=== PATIENT | male | born 1955 | race Caucasian/White ===

== ENCOUNTER 2017-04-16 07:36 | Emergency (ER) | payer BC ==
[2017-04-16] MEDS ORDERED: NS 0.9% 1000 ML* 1,000 ML IV ONE ×2 (08:16→09:33)
[2017-04-16 08:39] LABS: Hematocrit 47 % (42-52); Mean Corpuscular HGB Conc 34 g/dl (31-36); Mean Corpuscular Hemoglobin 34 pg (27-31); Mean Corpuscular Volume 100 fL (80-94); Mean Platelet Volume 7 um3 (7.4-10.4); Red Blood Count 4.74 10^6/ul (4.0-5.4); Red Cell Distribution Width 14 % (10.5-15); White Blood Count 10.5 10^3/ul (3.5-10.8)
[2017-04-16 08:55] LABS: ALT 33 U/L (7-52); AST 24 U/L (13-39); Albumin 4.2 g/dL (3.2-5.2); Alkaline Phosphatase 57 U/L (34-104); Anion Gap 8 mmol/L (2-11); BUN/Creatinine Ratio 15.5 (8-20); Blood Urea Nitrogen 16 mg/dL (6-24); C Reactive Protein 144.77 mg/L (< 5.00); CO2 Carbon Dioxide 26 mmol/L (22-32); Calcium 9.6 mg/dL (8.6-10.3); Chloride 101 mmol/L (101-111); EGFR African American 93.8 (>60); EGFR Non-African American 72.9 (>60); Globulin 3.7 g/dL (2-4); Glucose 116 mg/dL (70-100); Lipase < 10 U/L (11.0-82.0); Potassium 3.7 mmol/L (3.5-5.0); Sodium 135 mmol/L (133-145); Total Protein 7.9 g/dL (6.4-8.9)
[2017-04-16] MEDS ORDERED: Iohexol 300* (CONTRAST) 10 ML SDV IV ONE (09:39)
[2017-04-16 09:52] LABS: Urine Bilirubin Negative (Negative); Urine Glucose Negative (Negative); Urine Nitrite Negative (Negative)
--- NOTE | 2017-04-16 11:08 | RAD ---
Indication: Lower abdominal pain. Contrast: Administered 121.1 ml of OMNIPAQUE 300 mg/ml CT of the abdomen and pelvis was performed after oral and IV contrast administration. Coronal and sagittal reconstructed images were obtained. The lung bases demonstrate no pleural fluid, nodules or masses. Heart demonstrates no pericardial effusion. Liver is normal in size. No focal lesions or intrahepatic duct dilatation is noted. There is diffuse decrease in density of the liver consistent with hepatic steatosis. The spleen is normal in size. No adrenal masses are noted. The pancreas demonstrates no mass or pancreatic duct dilatation. The gallbladder demonstrates no calcific gallstones. No pericholecystic fluid or wall thickening is identified. There is a small portacaval lymph node of uncertain clinical significance measuring 9 mm. No hydronephrosis is noted in either kidney. There is focal wall thickening of the sigmoid colon with pericolonic infiltration of fat. There is abrupt transition of normal mucosa to thickened mucosa at the rectosigmoid junction. An underlying neoplasm should BE considered. No peridiverticular abscess is noted. Additionally there is a low density mass in the transverse colon just adjacent to the hepatic flexure which is consistent with a lipoma. The bony structures are otherwise unremarkable. IMPRESSION: Wall thickening of the sigmoid colon with abrupt zone of transition from normal mucosal thickening mucosa at the rectosigmoid junction. Although this may represent diverticulitis I cannot totally exclude a colonic neoplasm. No peridiverticular abscess is noted. Lipoma in the transverse colon near the hepatic flexure. Hepatic steatosis.
[2017-04-16] MEDS ORDERED: Ciprofloxacin 400MG IVPREMIX(* 400 MG/200 ML BAG IVPB ONE (11:58)
[2017-04-16] MEDS ORDERED: metroNIDAZOLE TAB* 250 MG PO ONE (11:58)
[2017-04-16 12:53] VITALS: BP 161/79
--- NOTE | 2017-04-20 18:29 | ED ---
Mahin España Thomas, scribed for Sim Drew MD on 04/16/17 at 0817 . GI/ HPI - HPI Summary HPI Summary: The pt is a 61 y/o M presenting to the ED c/o bright red blood in his stool that began this morning. The patient began to have abdominal pain and constipation two days ago. He has 3/10 pain. In the ED, the pt additionally c/o nausea. PMHx includes hemorrhoids. He is on ASA. He has never had a colonoscopy. - History of Current Complaint Chief Complaint: EDGIBleed Time Seen by Provider: 04/16/17 08:00 Stated Complaint: ABD PAIN, RECTAL BLEEDING Hx Obtained From: Patient Onset/Duration: Started Hours Ago - onset this AM, Still Present Timing: Constant Severity: Moderate Pain Intensity: 3 Associated Signs and Symptoms: Positive: Other: - Bright red blood in stool, abd pain, constipation, nausea Alleviating Factor(s): Nothing - Allergy/Home Medications Allergies/Adverse Reactions: Allergies Allergy/AdvReac Type Severity Reaction Status Date / Time No Known Allergies Allergy Verified 05/01/15 08:44 Home Medications: Home Medications Aspirin EC Low Dose* [Ecotrin EC Low Dose 81 MG*] 81 mg PO DAILY 04/16/17 [ History Confirmed 04/16/17] PMH/Surg Hx/FS Hx/Imm Hx Previously Healthy: No Endocrine/Hematology History: Denies: Hx Diabetes, Hx Thyroid Disease Cardiovascular History: Denies: Hx Hypertension Respiratory History: Denies: Hx Asthma, Hx Chronic Obstructive Pulmonary Disease (COPD) GI History: Denies: Hx Ulcer - Surgical History Surgery Procedure, Year, and Place: abd hernia repair Infectious Disease History: No Infectious Disease History: Denies: Hx Clostridium Difficile, Hx Hepatitis, Hx Human Immunodeficiency Virus (HIV), Hx of Known/Suspected MRSA, History Other Infectious Disease, Traveled Outside the [place] in Last 30 Days - Family History Known Family History: Positive: Other - Diverticulitis - Social History Alcohol Use: Daily Alcohol Amount: "I drink all the time" Substance Use Type: Reports: None Smoking Status (MU): Heavy Every Day Tobacco Smoker Type: Cigarettes Amount Used/How Often: 10 cigs per day Review of Systems Negative: Fever Positive: Abdominal Pain, Nausea, Other - BRB in stool, constipation All Other Systems Reviewed And Are Negative: Yes Physical Exam - Summary Physical Exam Summary: VITAL SIGNS: Reviewed. GENERAL: Patient is a well-developed and nourished male who is lying comfortable in the stretcher. Patient is not in any acute respiratory distress. HEAD AND FACE: Normocephalic and atraumatic. EYES: PERRLA, EOMI x 2, No injected conjunctiva. EARS: Hearing grossly intact. Ear canals and tympanic membranes are WNL. MOUTH: Oropharynx within normal limits. NECK: Supple, trachea is midline, no adenopathy, no JVD. CHEST: Symmetric, no tenderness at palpation LUNGS: Clear to auscultation bilaterally. No wheezing or crackles. CVS: RRR, S1 and S2 present, no murmurs or gallops appreciated. ABDOMEN: Soft. There is lower abdominal tenderness, more in the left than the right. No signs of distention. Positive bowel sounds. No rebound no guarding, and no masses palpated. No abdominal bruit or pulsations. RECTAL: There is no hemorrhoids. There is no gross blood or melena. EXTREMITIES: FROM in all major joints, no edema, no cyanosis or clubbing. NEURO: Alert and oriented x 3. No acute neurological deficits. Speech is normal. SKIN: Dry and warm Triage Information Reviewed: Yes Vital Signs On Initial Exam: Initial Vitals Temp Pulse Resp BP Pulse Ox 97.5 F 99 20 165/91 97 04/16/17 07:42 04/16/17 07:42 04/16/17 07:42 04/16/17 07:42 04/16/17 07:42 Vital Signs Reviewed: Yes - [place] Coma Scale Coma Scale Total: 15 Diagnostics - Vital Signs Vital Signs Temp Pulse Resp BP Pulse Ox 04/16/17 08:00 113 135/82 96 04/16/17 07:55 97 96 04/16/17 07:52 155/72 04/16/17 07:42 97.5 F 99 20 165/91 97 - Laboratory Result Diagrams: 04/16/17 08:19 04/16/17 08:19 Lab Statement: Any lab studies that have been ordered have been reviewed, and results considered in the medical decision making process. - CT CT Abd/Pel CT Interpretation: Positive (See Comments) - Wall thickening of the sigmoid colon with abrupt zone of transition from normal mucosal thickening mucosa at the rectosigmoid junction. Although this may represent diverticulitis I cannot totally exclude a colonic neoplasm. No peridiverticular abscess is noted. Lipoma in the transverse colon near the hepatic flexure. Hepatic steatosis. ED physician has reviewed this report and agrees. CT Interpretation Completed By: Radiologist - EKG 08:26 Cardiac Rate: NL EKG Rhythm: Sinus Rhythm EKG Interpretation: [address] elevations. Normal axis. GIGU Course/Dx - Course Assessment/Plan: The pt is a 61 y/o M presenting to the ED c/o bright red blood in his stool that began this morning. The patient began to have abdominal pain and constipation two days ago. He has 3/10 pain. In the ED, the pt additionally c/o nausea. PMHx includes hemorrhoids. He is on ASA. He has never had a colonoscopy. Test results are without significant abnormalities except CRP 144. Urinalysis is negative for UTI. CT Abd/Pel shows Wall thickening of the sigmoid colon with abrupt zone of transition from normal mucosal thickening mucosa at the rectosigmoid junction. Although this may represent diverticulitis I cannot totally exclude a colonic neoplasm. No peridiverticular abscess is noted. Lipoma in the transverse colon near the hepatic flexure. Hepatic steatosis. The patient was started on ciprofloxacin, Flagyl, and IV fluids. I discussed the case with Dr. Aburto, who recommends follow up at his office at at 10AM. I discussed the findings and test results with the patient and the patients . They agreed with the plan to follow up with Dr. Aburto. The patient is hemodynamically stable and alert and oriented x3. - Diagnoses Provider Diagnoses: Diverticulitis, Colon wall thickening - Physician Notifications Discussed Care Of Patient With: Geovanny Aburto Time Discussed With Above Provider: 12:26 Instructed by Provider To: Other - I consulted with Dr. Aburto, gastroenterology. He says the patient can be discharged home for follow up at his office. Discharge - Discharge Plan Condition: Stable Disposition: HOME Prescriptions: Ciprofloxacin TAB* [Cipro 500 MG TAB*] 500 mg PO BID #20 tab Metronidazole [Flagyl 500 MG TAB] 500 mg PO TID #1 tab Patient Education Materials: Diverticulitis (ED), Diverticulitis Diet (ED) Referrals: Geovanny Aburto MD [Medical Doctor] - 04/19/17 10:00 am () Additional Instructions: You have an appointment with Dr. Aburto, sales vendor, on 04/19/17 at 10: 00am. Dr. Aburto specifically instructed you to bring your to this appointment. Return to the emergency department for any new or worsening symptoms. The documentation as recorded by the Mahin stack Thomas accurately reflects the service I personally performed and the decisions made by me, Sim Drew MD.
== END 2017-04-16 12:52 | disposition home or self-care (01) ==
LOC: ED 07:36
DX: K57.92 Diverticulitis of intestine, part unspecified, without perforation or abscess without bleeding (principal); K63.89 Other specified diseases of intestine
CPT/HCPCS: 36415; 74177; 80053; 81003; 82272; 83690; 83880; 85025; 86140; 93005; 96360; 96374; 99282; A9270-GY; J0744; Q9967

== ENCOUNTER 2017-05-28 09:28 | Emergency (ER) | payer BC ==
[2017-05-28] MEDS ORDERED: Ipratropium 0.5MG/2.5ML NEB* 0.5 MG/2.5 ML NEB.SOLN INH ONE (11:01)
[2017-05-28] MEDS ORDERED: Albuterol 2.5 MG/3 ML NEB.SOL* (0.083%) INH ONE (11:01)
--- NOTE | 2017-05-28 11:31 | RAD ---
INDICATION: Shortness of breath. COMPARISON: There are no prior studies available for comparison. TECHNIQUE: Dual-energy PA and lateral views of the chest were obtained. FINDINGS: The heart is within normal limits in size. Mediastinal contours appear normal. The lungs are hyperinflated with flattening of the diaphragms suggestive of chronic obstructive pulmonary disease. The lungs appear clear. No pleural effusion is seen. IMPRESSION: FINDINGS CONSISTENT WITH COPD, NO EVIDENCE FOR ACUTE FINDING.
[2017-05-28 11:53] VITALS: BP 138/82
--- NOTE | 2017-05-28 12:49 | UC ---
Alber España Tecjoon, scribed for Aruna Osorio DO on 05/28/17 at 1104 . Shortness of Breath HPI - HPI Summary HPI Summary: This patient is a 62 year old male presenting to [facility] [place] with a chief complaint of cough, sinus congestion and SOB since 2 days ago. He states, "I think I have the flu." Patient states that he has slight dyspnea on exertion. Patient states he is currently not having any pain. Symptoms aggravated by nothing. Symptoms alleviated by nothing. Patient additionally reports coughing, nasal congestion, SOB. Patient denies sore throat, earache. - History of Current Complaint Chief Complaint: UCRespiratory Stated Complaint: COUGH, AND CHEST CONGESTION Time Seen by Provider: 05/28/17 10:50 Hx Obtained From: Patient Onset/Duration: Gradual Onset, Lasting Days - 2, Still Present Timing: Constant Dyspnea At: Rest Aggrevating Factors: Nothing Alleviating Factors: Nothing Associated Signs & Symptoms: Positive: Cough (Nonproductive), Wheezing, Chills, Nasal Congestion, Other - negative: sore throat, earache. Negative: Cough ( Bloody Sputum), Chest Pain w/Cough, Chest Pain Unrelated to Cough, Fever, Diaphoresis, Dizzy, Edema - Allergy/Home Medications Allergies/Adverse Reactions: Allergies Allergy/AdvReac Type Severity Reaction Status Date / Time No Known Allergies Allergy Verified 05/01/15 08:44 Home Medications: Home Medications [id number] W/ APAP [Tylenol Cold & Flu Severe] 1 tab PO 05/28/17 [ History] PMH/Surg Hx/FS Hx/Imm Hx Previously Healthy: No Endocrine History: Other - negative: diabetes Other Endocrine History: negative: diabetes GI/ History: Diverticulitis - Surgical History Surgical History: Yes Surgery Procedure, Year, and Place: abd hernia repair - Family History Known Family History: Positive: Other - Diverticulitis Negative: Hypertension, Diabetes - Social History Lives: With Family Alcohol Use: Weekly Alcohol Amount: "I drink all the time" Substance Use Type: None Smoking Status (MU): Heavy Every Day Tobacco Smoker Type: Cigarettes Amount Used/How Often: 10 cigs per day Cessation Counseling: Patient Advised to Stop Review of Systems Constitutional: Chills Skin: Negative Eyes: Negative ENT: Negative - sore throat, ear ache, Nasal Discharge, Sinus Congestion Respiratory: Shortness Of Breath, Cough Cardiovascular: Negative Gastrointestinal: Negative Neurological: Negative All Other Systems Reviewed And Are Negative: Yes Physical Exam Triage Information Reviewed: Yes Vital Signs: Initial Vital Signs Temp 98.5 F 05/28/17 09:43 Pulse 109 05/28/17 09:43 Resp 22 05/28/17 09:43 BP 161/136 05/28/17 09:43 Pulse Ox 92 05/28/17 09:43 Vital Signs Reviewed: Yes - Additional Comments Appearance: Well-Appearing, No Pain Distress, Well-Nourished Eyes: conjunctiva clear, no discharge ENT: Hearing grossly normal, no muffled/hoarse voice. TMs normal, negative tonsillar swelling, negative tonsillar exudate, negative trismus. Neck: Normal, Supple Respiratory/Lung Sounds: Diffuse decreased breath sounds bilaterally. Only trace tight wheezes. Cardiovascular: RRR, No murmur Musculoskeletal: Normal Neurological: Alert, muscle tone normal Psychiatric:Normal, age appropriate behavior Skin: Normal, Warm, Dry, Normal color Diagnostics - Radiology CXR Xray Interpretation: Positive (See Comments) - IMPRESSION: FINDINGS CONSISTENT WITH COPD, NO EVIDENCE FOR ACUTE FINDING. physician has reviewed this radiology report. Radiology Interpretation Completed By: Radiologist Shortness of Breath Dx - Course Course Of Treatment: This patient is a 62 year old male presenting to [facility] [place] with a chief complaint of cough, sinus congestion and SOB since 2 days ago. Patient states that he has slight dyspnea on exertion. Patient states he is currently not having any pain. Symptoms aggravated by nothing. Symptoms alleviated by nothing. Patient additionally reports coughing, nasal congestion, SOB. Patient denies sore throat, earache. CXR reveals, per radiologist, IMPRESSION: FINDINGS CONSISTENT WITH COPD, NO EVIDENCE FOR ACUTE FINDING. physician has reviewed this radiology report. In the [facility] course the patient was given Albuterol, Atrovent. Scattered wheezing heard on auscultation and o2 sat 95% s/p duoneb.Medications reviewed. Allergies reviewed. - Differential Dx/Diagnosis Differential Diagnosis/HQI/PQRI: Bronchitis, COPD Exacerbation, Pneumonia Provider Diagnoses: copd exacerbation Discharge - Discharge Plan Condition: Stable Disposition: HOME Prescriptions: Albuterol HFA INHALER* [Ventolin HFA Inhaler*] 2 puff INH Q4H PRN #1 mdi PRN Reason: Sob/Wheezing Benzonatate CAP* [Tessalon 100 MG CAP*] 100 mg PO TID #30 cap DOXYcycline CAP(*) [DOXYcycline 100MG CAP(*)] 100 mg PO BID #20 cap guaiFENesin ER TAB [Mucinex*] 600 mg PO BID PRN #1 box PRN Reason: Cough Guaifenesin-Codeine [Guaiatussin AC] 5 - 10 ml PO BEDTIME PRN #100 ml MDD 10ml PRN Reason: Cough predniSONE TAB* [Deltasone TAB*] 40 mg PO DAILY #10 tab Patient Education Materials: COPD (Chronic Obstructive Pulmonary Disease) (ED) Referrals: David Jiménez MD [Primary Care Provider] - 2 Days Additional Instructions: INHALED BRONCHODILATORS: You have received a prescription for an inhaled bronchodilator -- a medication which stimulates the airways in the lung to dilate. This improves the flow of air in asthma, bronchitis, and emphysema. These medicines have some similarity to adrenaline, and can cause similar side effects: shakiness, racing heart, and a sense of nervousness. These side effects decrease with time. Contact your doctor if these side effects are severe. Do not over-use the medicine. Too-frequent use of the inhaler may make it ineffective. Call your doctor if the inhaler is not controlling your symptoms at the prescribed doses. EXPECTORANT MEDICATION: WE SENT IN A SCRIPT FOR MUCINEX SO THAT IT IS EASIER FOR YOU TO PICK THE RIGHT MED AT THE PHARMACY. HOWEVER, YOU CAN ALSO GO TO THE [employer] [facility] AND BUY PLAIN GUAIFENESIN WITHOU BINDERS OR FILLERS. An expectorant medicine has been prescribed. This type of drug makes mucous thinner, helping the sinuses, nose, and bronchial tubes to remain free of pus and mucous. Expectorants make a cough less severe and more comfortable, and help infected sinuses drain. In general, antihistamines defeat the purpose of the expectorant by making mucous thicker. They should be avoided unless specifically recommended by your physician. TESSALON PERLES: You have received a prescription for Tessalon Perles (benzonatate). This is a non-narcotic medicine for relief of cough. It usually works in about 15- 20 minutes and lasts around four hours. Tessalon Perles should be swallowed. They should not be chewed or dissolved in the mouth (this can produce temporary numbing of the mouth and choking can occur). If you develop any adverse effects such as wheezing, shortness of breath, hives, rash, itching, or lightheadedness, please return at once. COUGH-SUPPRESSANT & EXPECTORANT MEDICATION: You are to use a cough medication as needed for relief of symptoms. This medicine is a combination of an expectorant (to make the mucous thinner and more easily "coughed up") and a cough suppressant (to reduce the frequency of coughing). The cough-suppressant medicine is related to narcotics. You may experience mild nausea and sleepiness. Some patients who are very sensitive to narcotics may have stomach pain from this medicine. Taking the medicine with food reduces these side effects. Do not drive or work with machinery until you know how this medicine affects you. The expectorant should have no side effects. Iodine-containing expectorants (such as organidin) should not be taken by persons with active thyroid disease unless approved by your doctor. Call the doctor if you develop shortness of breath, hives, rash, itching, lightheadedness, or severe nausea and vomiting. THIS MEDICATION CAN LOWER YOUR BLOOD PRESSURE. THIS INCREASES YOUR RISK OF FAINTING AND THEREFORE FALLING AND HITTING YOUR HEAD. PLEASE BE CAREFUL WHEN CHANGING POSITIONS, ESPECIALLY WHEN GETTING UP AT NIGHT TO PEE. DOXYCYCLINE: Doxycycline (Vibramycin, Doryx) is an antibiotic of the tetracycline family. This type of drug is useful for infections of the respiratory tract and genital tract, and is sometimes used for intestinal infections. Unlike most tetracyclines, doxycycline can be taken with food. It is longer acting, and (usually) less prone to side effects than regular tetracycline. Tetracycline antibiotics can stain immature teeth and SHOULD NOT BE TAKEN BY CHILDREN, NURSING MOTHERS, OR WOMEN. Tetracyclines can make you more prone to sunburn. Abdominal cramping, nausea, and diarrhea are occasional side effects. Women may experience vaginal yeast infections. Call the doctor at once if you develop hives, itching, shortness of breath , or lightheadedness. DISCUSSED, DOXY ALSO INCREASES YOUR RISK OF SUNBURN. COVER UP WHEN YOU GO OUTSIDE. ANYTIME YOU TAKE AN ANTIBIOTIC, IT IS IMPORTANT TO REPLENISH THE BODY'S SUPPLY OF "GOOD BACTERIA." YOU CAN GET GOOD BACTERIA FROM HIGH QUALITY CULTURED FOODS SUCH LOCAL YOGURT, SOUR KRAUT, EVA RONALDO, NATURALLY FERMENTED PICKLES AND PROBIOTIC DRINKS. YOU CAN ALSO GET GOOD BACTERIA FROM A PROBIOTIC SUPPLEMENT. The documentation as recorded by the Alber stack Tecjoon accurately reflects the service I personally performed and the decisions made by me, Aruna Osorio DO.
== END 2017-05-28 12:49 | disposition home or self-care (01) ==
LOC: UCEAST 09:28
DX: J44.1 Chronic obstructive pulmonary disease with (acute) exacerbation (principal); R05 Cough; R09.81 Nasal congestion; K57.92 Diverticulitis of intestine, part unspecified, without perforation or abscess without bleeding; F17.210 Nicotine dependence, cigarettes, uncomplicated
CPT/HCPCS: 71046; 87502; 99212; G0463; J7644